=== PATIENT | male | born 1990 | race Caucasian/White ===

== ENCOUNTER 2017-07-01 15:29 | Emergency (ER) | payer BC ==
[~2017-07-01] VITALS: Ht 180.3 cm; Wt 92.5 kg
[~2017-07-01 15:29] MED LIST: VIC PO
[2017-07-01 15:39] VITALS: Ht 180.3 cm; Wt 92.5 kg
[2017-07-01] MEDS ORDERED: ONDANSETRON 4 MG INJ IV STA (16:16)
[2017-07-01] MEDS ORDERED: KETOROLAC 30 MG INJ IV STA (16:16)
--- NOTE | 2017-07-01 16:16 | ERD ---
ER Documentation Chief Complaint Date/Time DATE: 07/01/17 TIME: 16:14 Chief Complaint RIGHT LOWER QUADRANT PAIN,BACK PAIN,DIARRHEA HPI 26-year-old male who presented emergency department for right lower abdominal pain that started last Wednesday, reports that he had a diarrhea since Wednesday. No she is the vomiting is mild difficulty walking due to right-sided abdominal pain. Denies headache, dizziness, blurry vision, neck pain, shoulder pain, chest pain , back pain, urinary symptoms, loss of bowel and bladder control, recent travel , recent exposure to any illness, recent antibiotic use in the last 3 months, numbness or tingling sensation, fever, chills. No known drug allergies. No past medical history. Surgical history: ACL to the left knee. Right shoulder surgery. Medication: Motrin. Social: Not working at this time. Denies smoking cigarettes. Occasional drinks alcoholic beverages. Admits use of medical marijuana. ROS All systems reviewed and are negative except as per history of present illness. Medications Home Meds Active Scripts Acetaminophen* (Tylophen*) 500 Mg Capsule, 1 CAP PO Q6H Y for PAIN AND OR ELEVATED TEMP, #20 CAP Prov:CRUZ RUEDA 07/01/17 Ibuprofen* (Motrin*) 800 Mg Tab, 800 MG PO Q6H Y for PAIN AND OR ELEVATED TEMP, #20 TAB Prov:MARYBETHWILLIAMOSWALDO Amalia 07/01/17 Ondansetron Hcl* (Zofran*) 4 Mg Tablet, 4 MG PO Q8H Y for NAUSEA AND/OR VOMITING , #30 TAB Prov:CRUZ RUEDA Amalia 07/01/17 Famotidine* (Pepcid*) 20 Mg Tablet, 20 MG PO DAILY for 45 Days, TAB Prov:MARYBETHWILLIAMOSWALDO Amalia 07/01/17 Cyclobenzaprine Hcl* (Cyclobenzaprine Hcl*) 10 Mg Tablet, 10 MG PO Q8 Y for MUSCLE SPASMS, #20 TAB Prov:CRUZ RUEDA Amalia 07/01/17 Reported Medications Acetaminophen/Hydrocodone (Vicodin) 1 Tab Tab, 1 TAB PO 07/21/13 Allergies Allergies: Coded Allergies: No Known Allergy (Unverified , 07/21/13) PMhx/Soc History of Surgery: Yes (Right AC surgery 07/19 at [facility]) Hx Alcohol Use: Yes Hx Substance Use: Yes Hx Tobacco Use: No Physical Exam Vitals Vital Signs Date Time Temp Pulse Resp B/P Pulse Ox O2 Delivery O2 Flow Rate FiO2 07/01/17 20:00 98.4 87 18 131/74 100 Room Air 07/01/17 15:39 97.2 63 18 139/80 98 Physical Exam Const: [] Head: Atraumatic Eyes: Normal Conjunctiva ENT: Normal External Ears, Nose and Mouth. Neck: Full range of motion..~ No meningismus. Resp: Clear to auscultation bilaterally Cardio: Regular rate and rhythm, no murmurs Abd: Soft, non tender, non distended. Normal bowel sounds. Has right lower abdominal tenderness and light and deep palpation. Developed right lower abdominal pain after jumping once. Also complains of right flank pain with right-sided CVA tenderness. Skin: No petechiae or rashes Back: No midline or flank tenderness Ext: No cyanosis, or edema Neur: Awake and alert Psych: Normal Mood and Affect Result Diagram: 07/01/17 1650 07/01/17 1630 Results 24 hrs Laboratory Tests Test 07/01/17 16:21 07/01/17 16:30 07/01/17 16:50 Urine Color YELLOW Urine Clarity CLEAR Urine pH 6.0 Urine Specific [place] 1.029 Urine Ketones NEGATIVEmg/dL Urine Nitrite NEGATIVEmg/dL Urine Bilirubin NEGATIVEmg/dL Urine Urobilinogen NEGATIVEmg/dL Urine Leukocyte Esterase NEGATIVELeu/ul Urine Hemoglobin NEGATIVEmg/dL Urine Glucose NEGATIVEmg/dL Urine Total Protein NEGATIVEmg/dl Sodium Level 142mmol/L Potassium Level 4.6mmol/L Chloride Level 106mmol/L Carbon Dioxide Level 24mmol/L Anion Gap 17 Blood Urea Nitrogen 18mg/dl Creatinine 0.98mg/dl Glucose Level 89mg/dl Calcium Level 9.7mg/dl Total Bilirubin 0.7mg/dl Direct Bilirubin 0.00mg/dl Indirect Bilirubin 0.7mg/dl Aspartate Amino Transf (AST/SGOT) 46IU/L Alanine Aminotransferase (ALT/SGPT) 55IU/L Alkaline Phosphatase 57IU/L Total Protein 8.9g/dl Albumin 5.1g/dl Globulin 3.80g/dl Albumin/Globulin Ratio 1.34 Amylase Level 82U/L Lipase 107U/L White Blood Count 8.810^3/ul Red Blood Count 5.3610^6/ul Hemoglobin 16.8g/dl Hematocrit 47.2% Mean Corpuscular Volume 88.1fl Mean Corpuscular Hemoglobin 31.3pg Mean Corpuscular Hemoglobin Concent 35.6g/dl Red Cell Distribution Width 11.4% Platelet Count 47458^3/UL Mean Platelet Volume 11.3fl Neutrophils % 57.2% Lymphocytes % 31.2% Monocytes % 6.9% Eosinophils % 3.9% Basophils % 0.6% Nucleated Red Blood Cells % 0.0/100WBC Neutrophils # (Manual) 5.010^3/ul Lymphocytes # 2.710^3/ul Monocytes # 0.610^3/ul Eosinophils # 0.310^3/ul Basophils # 0.110^3/ul Nucleated Red Blood Cells # 0.010^3/ul Current Medications Medications (Trade) Dose Ordered Sig/Jose Route PRN Reason Start Time Stop Time Status Last Admin Dose Admin Ondansetron HCl (Zofran Inj) 4 mg ONCE STAT IV 07/01/17 16:16 07/01/17 16:19 DC 07/01/17 16:41 Ketorolac Tromethamine 30 mg 30 mg ONCE STAT IV 07/01/17 16:16 07/01/17 16:19 DC 07/01/17 16:40 Sodium Chloride (NS) 1,000 ml @ 1,000 mls/hr Q1H ONCE IV 07/01/17 16:30 07/01/17 17:29 DC 07/01/17 16:38 IV Flush 10 ml 10 ml STK-MED ONCE .ROUTE 07/01/17 18:24 07/01/17 18:25 DC 07/01/17 18:38 Sodium Chloride (NS) 100 ml @ ud STK-MED ONCE .ROUTE 07/01/17 18:24 07/01/17 18:25 DC 07/01/17 18:38 Iohexol (Omnipaque 300mg/ ml) 150 ml STK-MED ONCE .ROUTE 07/01/17 18:24 07/01/17 18:25 DC 07/01/17 18:38 Procedures/MDM Examination: Please see physical examination. Disease process, medical treatment was explained to the patient and family member. They verbalized understanding and agreed with the diagnostic tests, medical treatment, and follow-up care. Radiology: CT of the abdomen and pelvis with IV contrast. Impression: Reviewed. Blood works: Reviewed. Urinalysis:Reviewed. Treatment: IV insertion. Normal saline IV bolus. Toradol IV. Zofran IV. Re-evaluation: Denies headache, dizziness, blurry vision, neck pain, shoulder pain, chest pain, back pain, abdominal pain, nausea, vomiting. No episode of emesis in the emergency department. Alert and oriented 4. Speaks full and clear sentences. Respirations even and unlabored. Lung sounds clear to auscultation. Active bowel sounds. There is no right upper/right lower/ epigastric/left upper/left lower abdominal tenderness and light and deep palpation. Negative on Rovsings sign. Negative Wilma sign. Able to jump 5 times without developing right-sided abdominal pain. No peritoneal signs. Ambulatory with steady gait. No neurovascular deficits. No neurological deficits. Consultation:None. Differential diagnosis:Appendicitis versus cholecystitis versus pancreatitis versus diverticulitis versus nephrolithiasis versus pyelonephritis versus musculoskeletal spasms versus urinary tract infection Medical decision making:Discharge with final diagnosis of abdominal pain, flank pain, musculoskeletal Medications prescribed are the following: Pepcid. Flexeril. Tylenol. Zofran. Patient and family member are made aware of the side effects and adverse reactions of the medications prescribed. Instructed on when to seek emergent and medical attention in case allergic/anaphylactic reactions or severe side effects and or adverse reactions to medications. Patient and family member verbalized understanding. Patient instructed Instructed to follow-up with his PCP in 24-48 hours. Instructed to Call 911 for chest pain, shortness of breath. Advised to come back here in ED as soon as possible for severity of symptoms which includes but not limited to: any new symptoms; shortness of breath/difficulty of breathing; cardiovascular changes; severe gastrointestinal symptoms; signs and symptoms of bleeding and or infection; signs of compartment syndrome/neurovascular changes; neurological changes/deficits. Patient and family member verbalized understanding. Upon discharge, patient is alert and oriented x 4, speaks full and clear sentences, denies pain, has no neurological deficits, has no neurovascular deficits, difficulty of breathing. Breathing even and unlabored. Lung sounds are clear to auscultation. Not in distress. Appears comfortable. Ambulatory with steady gait. Appears satisfied with care provided here in ED. Departure Diagnosis: Primary Impression: Multiple complaints Additional Impressions: Muscle spasm Flank pain Condition: Stable Additional Instructions: Instructed to follow-up with his PCP in 24-48 hours. Instructed to Call 911 for chest pain, shortness of breath. Advised to come back here in ED as soon as possible for severity of symptoms which includes but not limited to: any new symptoms; shortness of breath/difficulty of breathing; cardiovascular changes; severe gastrointestinal symptoms; signs and symptoms of bleeding and or infection; signs of compartment syndrome/neurovascular changes; neurological changes/deficits. Patient and family member verbalized understanding. CRUZ RUEDA Jul 01, 2017 16:16
[2017-07-01] MEDS ORDERED: SOD CHLORIDE 0.9% 1,000 ML IV ONE (16:30)
[2017-07-01 17:02] LABS: ADD UMIC NO; UR ASCORBIC ACID 40 mg/dL (NEGATIVE); UR BILIRUBIN (Dip) NEGATIVE (NEGATIVE); UR BLOOD (Dip) NEGATIVE (NEGATIVE); UR CLARITY CLEAR (CLEAR); UR COLOR YELLOW (YELLOW); UR GLUCOSE (Dip) NEGATIVE (NEGATIVE); UR KETONES (Dip) NEGATIVE (NEGATIVE); UR LEUKOCYTE ESTERASE (Dip) NEGATIVE Leu/ul (NEGATIVE); UR NITRITE (Dip) NEGATIVE (NEGATIVE); UR SPECIFIC GRAVITY (Dip) 1.029 (1.003-1.030); UR TOTAL PROTEIN (Dip) NEGATIVE (NEGATIVE); UR UROBILINOGEN (Dip) NEGATIVE (NEGATIVE)
[2017-07-01 17:15] LABS: BASOPHIL # 0.1 10^3/ul (0.0-0.1); BASOPHILS % 0.6 % (0.0-2.0); EOSINOPHILS # 0.3 10^3/ul (0.0-0.5); EOSINOPHILS % 3.9 % (0.0-7.0); HEMATOCRIT 47.2 % (42.0-52.0); HEMOGLOBIN 16.8 g/dl (14.0-18.0); LYMPHOCYTES # 2.7 10^3/ul (0.8-2.9); LYMPHOCYTES % 31.2 % (15.0-51.0); MEAN CORPUSCULAR HEMOGLOBIN 31.3 pg (29.0-33.0); MEAN CORPUSCULAR HGB CONC 35.6 g/dl (32.0-37.0); MEAN CORPUSCULAR VOLUME 88.1 fl (82.0-101.0); MEAN PLATELET VOLUME 11.3 fl (7.4-10.4); MONOCYTE # 0.6 10^3/ul (0.3-0.9); MONOCYTES % 6.9 % (0.0-11.0); NEUTROPHILS % 57.2 % (39.0-77.0); PLATELET COUNT 202 10^3/UL (140-415); POSITIVE DIFF @See below; RED BLOOD COUNT 5.36 10^6/ul (4.70-6.10); RED CELL DISTRIBUTION WIDTH 11.4 % (11.5-14.5); WHITE BLOOD COUNT 8.8 10^3/ul (4.8-10.8)
[2017-07-01 17:17] LABS: ALBUMIN 5.1 g/dl (3.3-4.9); ALBUMIN/GLOBULIN RATIO 1.34; BILIRUBIN,INDIRECT 0.7 mg/dl (0-1.1); BILIRUBIN,TOTAL 0.7 mg/dl (0.2-1.3); CALCIUM 9.7 mg/dl (8.4-10.2); CREATININE 0.98 mg/dl (0.61-1.24); POTASSIUM 4.6 mmol/L (3.5-5.1); TOTAL PROTEIN 8.9 g/dl (6.1-8.1)
[2017-07-01] MEDS ORDERED: IOHEXOL 300MG/ML 150 ML BTL ONE (18:24)
[2017-07-01] MEDS ORDERED: SOD CHLORIDE 0.9% 100 ML ONE (18:24)
--- NOTE | 2017-07-01 18:47 | RADRPT ---
PROCEDURE: CT Abdomen and Pelvis with contrast. CLINICAL INDICATION: right lower abdominal pain TECHNIQUE: CT scan of the abdomen and pelvis with contrast was performed on a multi-detector high- resolution CT scanner. The patient was scanned following the uncomplicated intravenous administrati on of 100 cc of Omnipaque 300. Coronal and sagittal reformatted images were obtained from the axial source images. Images were reviewed on a high-resolution PACS workstation. The total exam CTDI equa ls 14.1 mGy and the total exam DLP equals 827 mGy-cm. One or more of the following dose reduction techniques were used: Automated exposure control. Adjustment of the mA and/or kV according to patient size. Use of iterative reconstruction technique. COMPARISON: None. FINDINGS: Limited evaluation of the lung bases are clear. No pleural effusions. The liver, spleen, bilateral adrenal glands, gallbladder, and pancreas are normal-appearing. The bilateral kidneys are normal-appearing without hydronephrosis. The small and large bowel are thin-walled and nondilated without evidence for obstruction. The appen corrina is normal-appearing. The urinary bladder is grossly normal. The prostate gland is not enlarged. No free air, free fluid, mesenteric stranding, nor abdominal pelvic adenopathy. The abdominal aorta is normal in course and caliber without dissection or aneurysm. No suspicious osseous lesions. IMPRESSION: Normal appendix. No acute intra-abdominal process. Physician Yoan Date Time Electronically viewed and signed by Physician Yoan on 07/01/2017 18:47 ML/
[2017-07-01] MEDS ORDERED: CYCL-319 PO (19:40)
[2017-07-01] MEDS ORDERED: ONDA4TAB8 PO (19:41)
[2017-07-01] MEDS ORDERED: IBUP800T25 PO (19:41)
[2017-07-01] MEDS ORDERED: FAMO-96 PO (19:41)
[2017-07-01] MEDS ORDERED: ACET500C5 PO (19:42)
[2017-07-01 20:00] VITALS: BP 131/74; PULSE 87; RESP 18; TEMP 98.4
== END 2017-07-01 20:00 | disposition home or self-care (01) ==
LOC: FTE 15:29
DX: R10.31 Right lower quadrant pain (principal); M54.9 Dorsalgia, unspecified; R19.7 Diarrhea, unspecified
CPT/HCPCS: 74177; 80053; 81003; 82150; 83690; 85025; 96374; 96375; 99285; J1885; J2405; J7030; Q9967